=== PATIENT | male | born 1955 | race Caucasian/White ===

== ENCOUNTER → 2020-11-30 | Outpatient (CLI) | payer MEDICARE, OTHER ==
[~2020-11-30] MED LIST: BRIMONIDINE TAR15 ML EYEBOTH; D3 + K2 DOTS 11 EACH PO; ESCITALOPRAM OX10 MG PO; FAMOTIDINE20 MG PO; FLOMAX 0.4 MG0.4 MG PO; LATANOPROST2.5 ML OU; LOPRESSOR 25 MG25 MG PO; QUETIAPINE FUMA50 MG PO; TRAMADOL HCL50 MG PO
[2020-11-30 09:44] LABS: BUN/CREATININE RATIO 16 (0-10)
== END ==
LOC: LAB 08:44
PROVIDERS: Family Medicine
DX: E78.2 Mixed hyperlipidemia (principal); E55.9 Vitamin D deficiency, unspecified; I10 Essential (primary) hypertension
CPT/HCPCS: 36415; 80053; 80061; 83735

== ENCOUNTER → 2021-04-02 | Outpatient (CLI) | payer MEDICARE, OTHER ==
[2021-04-02 10:38] LABS: BUN/CREATININE RATIO 17 (0-10)
== END ==
LOC: LAB 09:22
PROVIDERS: Family Medicine
DX: E55.9 Vitamin D deficiency, unspecified (principal); I10 Essential (primary) hypertension; E78.2 Mixed hyperlipidemia; M47.892 Other spondylosis, cervical region; M50.322 Other cervical disc degeneration at C5-C6 level
CPT/HCPCS: 72040; 80053; 80061

== ENCOUNTER 2021-05-14 19:52 | Emergency (ER) | payer MEDICARE, OTHER ==
[2021-05-14 20:39] LABS: HEMOGLOBIN 15.4 gm/dl (14.0-17.5); RED BLOOD COUNT 5.03 M/UL (4.20-5.50); WHITE BLOOD COUNT 10.4 K/UL (4.5-11.0)
[2021-05-14 20:57] LABS: BUN/CREATININE RATIO 14 (0-10)
== END 2021-05-14 22:30 | disposition home or self-care (01) ==
LOC: ER1 19:52
PROVIDERS: Physician Assistant
DX: U07.1 COVID-19 (principal); I10 Essential (primary) hypertension; Z23 Encounter for immunization; Z90.49 Acquired absence of other specified parts of digestive tract
CPT/HCPCS: 71045; 80053; 85025; 93005; 99285; M0243

== ENCOUNTER → 2021-06-04 | Outpatient (CLI) | payer MEDICARE, OTHER | LOC: RAD 12:24 | DX: J18.9 Pneumonia, unspecified organism (principal) | CPT/HCPCS: 71046 ==

== ENCOUNTER → 2021-08-02 | Outpatient (CLI) | payer MEDICARE, OTHER ==
[2021-08-02 10:33] LABS: HEMOGLOBIN 15.6 gm/dl (14.0-17.5); RED BLOOD COUNT 4.97 M/UL (4.20-5.50); WHITE BLOOD COUNT 8.6 K/UL (4.5-11.0)
[2021-08-02 10:55] LABS: BUN/CREATININE RATIO 18 (0-10)
== END ==
LOC: LAB 09:40
PROVIDERS: Family Medicine
DX: M17.12 Unilateral primary osteoarthritis, left knee (principal); E78.2 Mixed hyperlipidemia; E55.9 Vitamin D deficiency, unspecified; N40.0 Benign prostatic hyperplasia without lower urinary tract symptoms; M25.462 Effusion, left knee; M25.762 Osteophyte, left knee
CPT/HCPCS: 36415; 73560; 80053; 80061; 84153; 85027

== ENCOUNTER → 2021-11-28 | Outpatient (CLI) | payer MEDICARE, OTHER ==
[2021-11-28 09:45] LABS: BUN/CREATININE RATIO 18 (0-10)
[2021-11-29 07:11] LABS: VITAMIN D, 25-HYDROXY 45.3 ng/mL (30.0-100.0)
[2021-11-29 08:14] LABS: RHEUMATOID ARTHRITIS FACTOR <10.0 IU/mL (<14.0)
== END ==
LOC: LAB 07:47
PROVIDERS: Family Medicine
DX: I10 Essential (primary) hypertension (principal); R73.9 Hyperglycemia, unspecified; E78.2 Mixed hyperlipidemia; E55.9 Vitamin D deficiency, unspecified; E73.9 Lactose intolerance, unspecified; M13.0 Polyarthritis, unspecified
CPT/HCPCS: 36415; 80053; 80061; 83036; 84550; 85652; 86140; 86200; 86431

== ENCOUNTER → 2022-02-20 | Outpatient (CLI) | payer MEDICARE, OTHER ==
[2022-02-20 13:48] LABS: BUN/CREATININE RATIO 16 (0-10)
[2022-02-21 10:18] LABS: CREATININE, URINE 88.1 mg/dL (Not Estab.); MICROALB/CREAT RATIO <3 (0-29)
== END ==
LOC: LAB 12:33
PROVIDERS: Family Medicine
DX: E11.9 Type 2 diabetes mellitus without complications (principal); R79.82 Elevated C-reactive protein (CRP)
CPT/HCPCS: 36415; 80053; 82043; 82570; 83036; 85652; 86140

== ENCOUNTER → 2022-05-07 | Outpatient (CLI) | payer MEDICARE, OTHER | LOC: RAD 14:52 | DX: M17.11 Unilateral primary osteoarthritis, right knee (principal); M19.011 Primary osteoarthritis, right shoulder | CPT/HCPCS: 73030; 73560 ==

== ENCOUNTER → 2022-05-21 | Outpatient (CLI) | payer MEDICARE, OTHER | LOC: ECHO 13:05 → EDSTATUS 13:15 → NM 15:00 | DX: R07.9 Chest pain, unspecified (principal); R53.83 Other fatigue | CPT/HCPCS: ECHO; 78452; 93017; 93306; A9502 ==

== ENCOUNTER → 2022-06-16 | Outpatient (CLI) | payer MEDICARE, OTHER ==
[2022-06-16 11:53] LABS: HEMOGLOBIN 15.6 gm/dl (14.0-17.5); RED BLOOD COUNT 4.91 M/UL (4.20-5.50); WHITE BLOOD COUNT 12.6 K/UL (4.5-11.0)
[2022-06-16 12:17] LABS: BUN/CREATININE RATIO 22 (0-10)
== END ==
LOC: LAB 11:00
PROVIDERS: Family Medicine
DX: E78.2 Mixed hyperlipidemia (principal); E55.9 Vitamin D deficiency, unspecified; R79.82 Elevated C-reactive protein (CRP); E11.9 Type 2 diabetes mellitus without complications
CPT/HCPCS: 36415; 80053; 80061; 83036; 83735; 85027; 85652; 86140